=== PATIENT | male | born 1995 | race Two or more races ===

== ENCOUNTER 2024-12-02 18:50 | Emergency (ER) | payer OTHER ==
[~2024-12-02] VITALS: Ht 180.3 cm; Wt 85.0 kg
[2024-12-02 18:51] VITALS: BP 140/72; PULSE 80; RESP 20; O2SAT 98
--- NOTE | 2024-12-02 18:58 | ELECTROCARDIOGRAPH REPORT ---
[facility] Test Date: 2024-12-02 Test Time: 18:54:17 Pat Name: ELISABETH LOCKWOOD Department: EMERGENCY ROOM Room: Gender: M [employer] Professional: BILL : 1995 Requested By: ANNA RING Order Number: [id number] Reading MD: Measurements Intervals [place] Rate: 87 P: 73 [place]: 125 QRS: 60 QRSD: 90 T: 40 QT: 346 QTc: 417 Interpretive Statements Sinus rhythm Please click the below link to view image of tracing.
[2024-12-02 19:08] LABS: MEAN PLATELET VOLUME 8.1 FL (7.4-10.4); RED CELL DISTRIBUTION WIDTH 12.3 % (11.5-14.5)
[2024-12-02 19:30] LABS: CREATININE 1.08 MG/DL (0.60-1.10); TOTAL CARBON DIOXIDE 31.2 MMOL/L (24-32); eCRCL 107 ML/MIN; eGFR 80 ML/MIN
[2024-12-02 19:33] LABS: PRO BRAIN NATRIURETIC PEPTIDE < 30 PG/ML (0-125)
--- NOTE | 2024-12-02 20:11 | RADIOLOGY REPORT ---
EXAM: DI CHEST,SINGLE VIEW CLINICAL HISTORY: CP TECHNIQUE: Single AP view of the chest WID: COMPARISON: None FINDINGS: Lines and tubes: None Chest: The heart size and pulmonary vasculature is within normal limits. No pleural effusion, pneumothorax, or consolidation. The osseous structures are grossly intact. IMPRESSION: 1. No acute cardiopulmonary abnormality.
--- NOTE | 2024-12-02 23:24 | Physician Documentation ---
History of Present Illness ~ Chief Complaint: Rib pain Stated Complaint: CHEST PAIN Time Seen by MD: 19:20 HPI A 29-year-old male that presents to the emergency department for evaluation of left-sided chest pain. Patient reports that he has experienced lower left rib pain upper abdominal pain x1 week. Reports that the pain is so significant that it causes him to have shortness of breath and wakes him up at night. Patient reports that the pain has progressed and he is having issues at work during the day due to feeling short of breath and an inability to take a full breath without significant pain on the lower left side lung. Patient reports that he delayed coming to the emergency department as he was hoping that the pain would subside. 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 Patient denies any past medical history denies any medication use. Patient denies fever chills cough congestion nausea vomiting diarrhea at this time. Allergies: Coded Allergies: No Known Allergies (Unverified , 12/02/24) Active Prescriptions See Medication Reconciliation Form. Review of Systems ROS As stated above in the HPI, otherwise all systems are reviewed and negative. Physical Exam Vital Signs: Temperature: 98.1, Source: Temporal, Heart Rate: 80, Respiratory Rate: 20, BP: 140/72, Pulse Oximetry: 98, Weight: 85.000 Physical Exam VITALS: Reviewed and as above. GENERAL: Alert, no apparent distress. HEENT: Normocephalic, atraumatic, PERRL, EOMI, dry mucosa, no erythema RESPIRATORY: Lungs clear, normal breath sounds, patient demonstrates discomfort with inspiration CHEST: No accessory muscle use, no retractions CV: Regular rate, rhythm, no edema, no murmur, No: JVD GI: Soft, non-tender, bowels sounds present, no rebound, guarding, or rigidity BACK: No CVA tenderness, or swelling MUSCULOSKELETAL No deformities, no edema, pain with deep palpation to left lower ribs SKIN: Warm and dry, no rash NEURO: Oriented x4, No motor or sensory deficit PSYCH: Normal mood and affect, no agitation Progress Results/Orders Results/Orders Orders - PING SANCHEZ Ct Chest Abdomen (12/02/24 23:15) Ct Chest Abdomen (12/02/24 23:51) Ct Chest (12/03/24 00:35) Completed Orders - PING SANCHEZ Dion [employer] D-Dimer (12/02/24 23:26) Ct Chest (12/03/24 00:35) Iohexol 300mg/Ml 100ml Inj. (Omnipaque-3 (12/03/24 00:42) Vital Signs 12/02/24 18:51 Temp 98.1 Pulse 80 Resp 20 B/P (MAP) 140/72 Pulse Ox 98 Laboratory Tests Test 12/02/24 18:58 12/02/24 21:13 12/02/24 23:39 White Blood Count 7.7 Red Blood Count 5.04 Hemoglobin 14.8 Hematocrit 43.0 Mean Corpuscular Volume 85.3 Mean Corpuscular Hemoglobin 29.4 Mean Corpuscular Hemoglobin Concent 34.4 Red Cell Distribution Width 12.3 Platelet Count 201 Mean Platelet Volume 8.1 Neutrophils (%) (Auto) 57.8 Lymphocytes (%) (Auto) 34.4 Monocytes (%) (Auto) 6.1 Eosinophils (%) (Auto) 1.3 Basophils (%) (Auto) 0.4 Neutrophils # (Auto) 4.5 Lymphocytes # (Auto) 2.7 Monocytes # (Auto) 0.5 Eosinophils # (Auto) 0.1 Basophils # (Auto) 0.0 CBC Comment Sodium Level 141 Potassium Level 3.5 Chloride Level 103 Carbon Dioxide Level 31.2 Anion Gap 7 L Blood Urea Nitrogen 15 Creatinine 1.08 Estimated GFR/1.73 m2 80 BUN/Creatinine Ratio 13.9 Glucose Level 99 Calcium Level 9.1 Troponin I High Sensitivity 5 6 Pro-B-Type Natriuretic Peptide < 30 Albumin 4.5 Chemistry Comments Troponin I High Sens Percent Delta 20 Troponin I Hi Sens Absolute Change 1 D-Dimer < 0.19 D-Dimer Comment Medical Decision Making Findings Exam without evidence of volume overload so doubt heart failure. EKG without signs of active ischemia. Presentation not consistent with acute PE (Wells low risk with a score of 0 PERC negative),pneumothorax (not visualized on chest xr), thoracic aortic dissection, pericarditis, tamponade, pneumonia (no infectious symptoms, clear chest xr), myocarditis (no recent illness, neg trop). HEART score:so plan to discharge patient home with PMD follow up. Patient has declined any pain management at this time despite significant discomfort. Patient follow up with his primary care provider. Patient will return to the emergency department with any worsening of his current symptoms or any addition al concerning symptoms that we discussed here today i.e. increased chest pain rib pain shortness of breath difficulty breathing lightheadedness syncope fever chills nausea vomiting diarrhea or any other concerning symptoms. Differential Dx:Considerations: Include: Chest wall contusion, Flail chest, Myocardial contusion, Pneumothorax, Pulmonary contusion, Rib fracture, Renal contusion, Splenic fracture, Tension pneumothorax, Other Departure Disposition: HOME / SELF CARE / HOMELESS Impression: Primary Impression: Left-sided chest wall pain Additional Impression: Shortness of breath Condition: Stable Referrals: NO PRIMARY CARE PROVIDER (PCP) Education Educated: Patient Educated regarding: diagnosis, treatment, need for follow up Signature Scribe Signature: A Attestation: Scribed for Ping Sanchez by KADEN Nolen . 12/03/24 02:00 PING SANCHEZ Dec 02, 2024 23:24
[2024-12-03] MEDS ORDERED: iohexol 300mg/ml 100ml inj. ONE (00:42)
--- NOTE | 2024-12-03 01:22 | RADIOLOGY REPORT ---
Procedure: CT CT CHEST W/ IV CONTRAST 12/03/2024 12:49 AM History: SOB X1 WK Comparison: None Technique: After the uneventful administration of contrast intravenously, CT imaging was performed through the chest. Coronal and sagittal reformations were performed by the technologist. Radiation Dose : CT Dose: CTDI volume is 16.63 mGy. Dose-length product is 457.13 mGy*cm CONTRAST: Type of contrast: Omnipaque 350 Contrast injected: 100 ml Findings: Lower neck: Normal thyroid. Lungs: No focal consolidation. Heart/Vascular Structures: Normal heart size. No pericardial effusion. Lymph Nodes: No adenopathy Pleura: No pleural effusion or significant pneumothorax. Musculoskeletal: No acute osseous abnormality. Soft tissues: Normal. Upper abdomen: Limited portions of the upper abdomen are unremarkable. IMPRESSION: No evidence of acute intrathoracic pathology identified.
[2024-12-03 02:04] VITALS: TEMP 98.1
== END 2024-12-03 02:09 | disposition home or self-care (01) ==
LOC: ER 18:50
DX: R07.89 Other chest pain (principal); R06.02 Shortness of breath; R10.10 Upper abdominal pain, unspecified
CPT/HCPCS: 36415; 71045; 71260; 74160; 80048; 83880; 84484; 85025; 85379; 93005; 99285; Q9967